=== PATIENT | female | born 1990 | race Caucasian/White ===

== ENCOUNTER 2022-04-01 01:17 | Emergency (ER) | payer BC ==
[~2022-04-01] VITALS: Ht 162.6 cm; Wt 59.0 kg
[2022-04-01] MEDS ORDERED: ONDANSETRON HCL/PF 4 MG/2 ML VIAL ONE (01:26)
[2022-04-01] MEDS ORDERED: MORPHINE SULFATE INJ 4 MG/ML DISP.SYRIN ONE (01:27)
[2022-04-01] MEDS ORDERED: MORPHINE SULFATE INJ 2 MG/ML DISP.SYRIN IV ONE (01:30)
[2022-04-01] MEDS ORDERED: ONDANSETRON HCL/PF 4 MG/2 ML VIAL IV ONE (01:30)
--- NOTE | 2022-04-01 01:35 | NUR ---
RICHARD TO ER BED 9. AAOX4. NOT IN RESP DISTRESS. AMBUALTORY. CAME IN FOR R SIDE FACE PAIN S.P FELL OF AN ELECTRIC SCOOTER. PT REPORTS LANDING ON HER RIGHT HITTING HER FACE ON THE GROUND. DENIED KO. NOTED R SIDE OF FACE SWOLLEN W/ REDNESS. PAIN IS RATE 7/10. PT IS ONTAINED AN ABRASSION ON THE R ELBOW AND R KNEE. MD WAS AT THE BEDSIDE. ORDERS RECEIVED AND NOTED.
--- NOTE | 2022-04-01 01:38 | NUR ---
LAC #20G S/L; PATENT & INTACT
--- NOTE | 2022-04-01 01:44 | NUR ---
PT TAKEN TO CT VIA CASH
--- NOTE | 2022-04-01 01:59 | NUR ---
PT RETURNED TO ER BED [address]
[2022-04-01] MEDS ORDERED: KETO10TA2 PO (02:56)
[2022-04-01] MEDS ORDERED: AMOX-430 PO (02:56)
[2022-04-01] MEDS ORDERED: KETOROLAC TROMETHAMINE INJ 30 MG/ML VIAL IV ONE (03:00)
[2022-04-01] MEDS ORDERED: AMOX/CLAVULANATE 875 MG TABLET PO ONE (03:00)
[2022-04-01] MEDS ORDERED: AMOX/CLAVULANATE 875 MG TABLET ONE (03:02)
[2022-04-01] MEDS ORDERED: KETOROLAC TROMETHAMINE 15 MG/ML VIAL ONE (03:03)
[2022-04-01 03:15] VITALS: BP 115/85
== END 2022-04-01 03:15 | disposition home or self-care (01) ==
LOC: ER 01:41
DX: S02.31XA Fracture of orbital floor, right side, initial encounter for closed fracture (principal); S02.40CA Maxillary fracture, right side, initial encounter for closed fracture; V00.141A Fall from scooter (nonmotorized), initial encounter; Y93.55 Activity, bike riding; Y92.89 Other specified places as the place of occurrence of the external cause; Y99.8 Other external cause status
CPT/HCPCS: 70450; 70486; 96374; 96375; 99284; A6403; J1885; J2270; J2405